=== PATIENT | female | born 1990 | race Hispanic/Latino ===

== ENCOUNTER 2025-01-29 18:51 | Emergency (ER) | payer SELFPAY ==
[~2025-01-29] VITALS: Ht 157.5 cm; Wt 79.0 kg
--- NOTE | 2025-01-29 19:23 | ERN ---
ED Note History of Present Illness Stated Complaint: SORE THROAT Chief Complaint: Sore Throat Time Seen by MD: 18:53 Time Seen by Midlevel: 18:53 Dictation: The patient is a 35-year-old female with no significant past medical history who presents to the emergency department with complaints of sore throat for two weeks. Patient denies any cough, fevers, nasal congestion but does reports that two weeks ago she had those symptoms. Allergies: Coded Allergies: No Known Drug Allergies (Unverified Allergy, Unknown, 01/29/25) Past Medical History Past Medical History: No Pertinent History Surgical History: None RN Note Reviewed/Agreed w/PFSH: Yes Review of System Dictation Constitutional: Negative for fever,chills, and weight loss Eyes: Negative for injury, pain,redness, and discharge ENT: Positive for sore throat Cardiovascular: Negative for chest pain, palpitations, and edema Respiratory: Negative for shortness of breath, cough, and wheezing, Abdomen/GI: Negative for abdominal pain, nausea, vomiting, diarrhea, and constipation Back: Negative for injury and pain : Negative for injury, bleeding and discharge MS/Extremity: Negative for injury and deformity Skin: Negative for rash, and discoloration Neuro: Negative for headache, weakness, numbness, tingling, and seizure Psych: Negative for suicide ideation, homicidal ideation, and hallucinations Initial Vital Sign VS Vital Signs Date Time Temp Pulse Resp B/P (MAP) Pulse Ox O2 Delivery O2 Flow Rate FiO2 01/29/25 18:54 98.4 87 19 140/83 100 Room Air 0 Physical Exam Dictation Vital Signs reviewed General Appearance: Alert, oriented x 3, no acute distress, well developed, nourished. Head and Face: non-traumatic. Eyes: PERRL, pink conjunctivas, eyelid no trauma, anterior chamber with arcus senilis. Ears: Pinnas intact and no signs of trauma or erythema ear canals clear and no discharge TM no erythema Nose: No discharge, no bleeding. Oropharynx: Mouth normal, tongue pink. pharynx clear,no erythema, tonsils no exudates, no abscesses noted, mucous membrane moist Neck: Supple, non-tender, no thyromegaly, no masses, no JVD, no bruits Breast:Deferred Chest:No tenderness, no crepitus, no paradoxical movement, no retractions Lungs:Clear, well-ventilated, symmetric, no rales, no wheezing, no rhonchi, no stridor, good breath sounds bilaterally Heart: Regular rate, regular rhythm, no murmur, no gallops Vascular: no peripheral edema, Abdomen: Soft, positive bowel sounds, nondistended, no guarding, nontender, no rebound, no masses no hepatomegaly, no splenomegaly, no Garay's sign, no hernias. Rectal: Deferred Genital: Deferred Neurological: Normal speech, motor function intact, sensory function intact Musculoskeletal: Neck nontender, full range of motion, back nontender, full range of motion, Extremities: nontender, full range of motion Skin: Color pink, dry, no turgor, no rash, no lacerations, no abrasions, no contusions. Lymphatic: Deferred Results (Laboratory/Radiology) Laboratory/Radiology Laboratory Tests Test 01/29/25 19:18 Influenza Type A Antigen Negative For Type A Influenza Type B Antigen Negative For Type B SARS-CoV-2 Antigen (Rapid) PRESUMPTIVE NEGATIVE Group A Streptococcus Rapid negative (NEGATIVE) Labs Reviewed?: Yes ED Course ED Course Orders Procedure Category Date Status Time Covid19 (Sars Antigen LAB 01/29/25 Complete Rapid) 19:08 Influenza Type A & B, LAB 01/29/25 Complete Rapid 19:08 Rapid (Group A Strep) LAB 01/29/25 Complete 19:08 Acetaminophen 500mg PHA 01/29/25 Complete Tab (Tylenol 500mg T 19:30 Current Medications Medications (Trade) Dose Ordered Sig/Behzad Route PRN Reason Start Time Stop Time Status Last Admin Dose Admin Acetaminophen (TYLenol 500MG TAB) 1,000 mg ONCE ONCE PO 01/29/25 19:30 01/29/25 19:31 DC 01/29/25 19:17 Vital Signs Date Time Temp Pulse Resp B/P (MAP) Pulse Ox O2 Delivery O2 Flow Rate FiO2 01/29/25 18:54 98.4 87 19 140/83 100 Room Air 0 Medical Decision Making MDM The patient is a 35-year-old female with no significant past medical history who presents to the emergency department with complaints of sore throat for two weeks. Patient denies any cough, fevers, nasal congestion but does reports that two weeks ago she had those symptoms. Serology is negative. Patient with mild erythema to throat but no signs of abscess, no swelling to neck. Patient in no acute distress. Nontoxic appearance will be discharged to follow up with PCP. Differential diagnosis: Pharyngitis, upper respiratory infection, strep throat Need for hospitalization: Patient does not meet criteria for hospitalization. There are no social concerns with this patient. DX & DISP Disposition: Discharge Departure Impression: Primary Impression: Pharyngitis Condition: Stable Scripts Penicillin V Potassium (Penicillin V Potassium) 500 Mg Tablet 1 TAB PO BID for 10 Days, #20 TAB 0 Refills Prov: NEGIN ESTRELLA 01/29/25 Additional Instructions: Please follow up with your primary doctor in 1-2 days. If anything worsens please return to ER. FOLLOW-UP WITH PRIMARY CARE PROVIDER IN 1 TO 2 DAYS. TAKE MEDICATIONS DIRECTED HERE IN THE EMERGENCY ROOM. OKAY TO CONTINUE HOME MEDICATIONS UNLESS OTHERWISE DISCUSSED DURING YOUR VISIT IN THE EMERGENCY ROOM TODAY. RETURN TO YOUR NEAREST EMERGENCY ROOM IF SYMPTOMS WORSEN OR IF THERE IS NO IMPROVEMENT. CALL 911 IF YOU NEED IMMEDIATE ASSISTANCE. TAKE TYLENOL [id number] NEEDED AND IF NO CONTRAINDICATIONS ARE PRESENT. INCREASE ORAL HYDRATION. A WOUND CULTURE OR URINE CULTURE WAS ORDERED HERE IN THE EMERGENCY ROOM DEPARTMENT PLEASE FOLLOW-UP WITH PRIMARY CARE PROVIDER AND ADVISE THEM TO GET REPEAT PORTS FROM OUR FACILITY. IF YOU HAD ANY DAVID WRAP/SPLINTS THAT WERE APPLIED HERE, PLEASE DO NOT REMOVE THEM UNTIL YOU SEE YOUR PRIMARY CARE OR SPECIALTY. Referrals: SELF,REFERRAL (PCP) Time of Disposition: 19:56 I have reviewed the case, and I agree with, Diagnosis and Plan NEGIN ESTRELLA Jan 29, 2025 19:23
[2025-01-29 19:38] LABS: RAPID GROUP A STREP negative (NEGATIVE)
[2025-01-29 19:47] LABS: COVID19 (SARS ANTIGEN RAPID) PRESUMPTIVE NEGATIVE (NEGATIVE); INFLUENZA TYPE A Negative For Type A (NEGATIVE); INFLUENZA TYPE B Negative For Type B (NEGATIVE)
[2025-01-29] MEDS ORDERED: PENI500T2 PO (20:00)
[2025-01-29 20:13] VITALS: BP 117/59; PULSE 71; RESP 18; TEMP 97.8; O2SAT 98
== END 2025-01-29 20:15 | disposition home or self-care (01) ==
LOC: EDH 18:51
DX: J02.9 Acute pharyngitis, unspecified (principal); Z20.822 Contact with and (suspected) exposure to COVID-19
CPT/HCPCS: 87426; 87804; 87880; 99283